=== PATIENT | female | born 1960 | race Caucasian/White ===

== ENCOUNTER 2016-10-07 22:40 | Emergency (ER) | payer OTHER ==
[~2016-10-07] VITALS: Ht 170.2 cm; Wt 86.0 kg
[~2016-10-07 22:40] MED LIST: CALC-858 PO; CITA20TA11 PO; Docusate Sodium PO; Ibuprofen PO; LEVO88TA28 PO; Oxycodone/Acetaminophen PO
[2016-10-07 22:42] VITALS: BP 124/88; PULSE 121; RESP 18; O2SAT 97
[2016-10-07] MEDS ORDERED: predniSONE 20 mg Tablet PO ONE (22:50)
--- NOTE | 2016-10-07 23:23 | ED.REPORT ---
HPI-Rash / Abscess Date of Service Oct 07, 2016 ED Provider: Maribeth Zapata MD Patient is a 56 year old female who presents to the ED due to a rash onset earlier this afternoon. Associated symptoms include body aches and a cough that started yesterday. The patient reports that the rash has continued to spread and is extremely itchy. She denies nausea, vomiting, shortness of breath or voice changes. The patient states that she tried taking Benadryl with no relief. Nursing Notes Stated Complaint: HIVES Chief Complaint: Skin Rash/Abscess Nursing Notes Reviewed: Yes Allergies: Coded Allergies: No Known Allergies (Unverified , 11/12/13) Scheduled Calcium Carb & Cit/Vitamin D3 (Calcium + D3 ER Tablet) 1 Each Tablet.er 1 EACH PO DAILY Citalopram (Citalopram) 20 Mg Tablet 20 MG PO DAILY Famotidine (Pepcid) 20 Mg Tablet 20 MG PO BID Levothyroxine (Levoxyl) 88 Mcg Tablet 88 MCG PO DAILY Prednisone (PredniSONE) 20 Mg Tablet 40 MG PO DAILY Scheduled PRN ([Docusate Sodium]) 100 MG CAPSULE 100 MG PO BID PRN PRN For Constipation ([Oxycodone/Acetaminophen]) 1 TAB TABLET 1-2 TAB PO Q4H PRN PRN For Pain ([Ibuprofen]) 600 MG TABLET 800 MG PO Q6H PRN PRN For Pain Hydroxyzine Pamoate (HydrOXYzine Pamoate) 25 Mg Capsule 25 MG PO Q6 PRN PRN For Itching General Time Seen by MD: 23:23 Chief Complaint Rash Hx Obtained From: Patient Arrived By: Walk-in Onset Occurred: 5 - 8 hours ago Symptom Duration: Since onset Location: : Generalized Quality: Itching Pertinent Negative: Relieved by nothing Recent Healthcare: No recent doctor visit, No recent hospitalization Similar Sx Previous: No Past Medical History Past Medical History none reported Smoking History Unknown if Ever Smoker Ambulatory Status Independent Review of Systems Review of Systems Note: body aches Constitutional: Denies: Chills, Fever Ears / Nose / Throat: Denies: Sore throat, Voice change Respiratory: Reports: Non-productive cough, Denies: Shortness of breath GI: Denies: Nausea, Vomiting Skin: Reports Rash Allergy / Immune: Reports: Hives, Itching Complete sys rev & neg: except as marked. Physical Exam Initial Vital Signs Vital Signs (First) Date Time Temp Pulse Resp B/P Pulse Ox O2 Delivery O2 Flow Rate FiO2 10/07/16 22:42 36.7 121 18 124/88 97 Room Air Initial VS: Reviewed, Vital signs abnormal General/Constitutional: Awake, Alert, No acute distress Skin: Warm, Dry diffuse urticaria on her arms, back and groin area with some areas that had vesicles Head / Eyes: Atraumatic, Normocephalic, PERRL, EOMI ENT: Atraumatic, Airway patent, Mucous membranes moist Respiratory / Chest: Atraumatic, Breath sounds NL, Breath sounds = bilat, No respiratory distress Cardiovascular: Heart rate NL, Regular rhythm, Heart sounds NL Neurologic: Oriented X3, Speech NL, No motor deficits, No sensory deficits Psychiatric: Affect NL, Mood NL Re-Eval/Medical Decision Med Decision/Clinical Course The patient's rash appears urticarial however she has some areas with vesicles. Given her description of general malaise she likely has a viral exanthem. There is no oral involvement and no recent ingestion of any medications or over- the-counter substances. Re-Evaluation/Progress : Time of Eval: 23:45 Re-Evaluation/Progress Note: Discussed plan for discharge. Patient understands and agrees to plan. All questions were addressed. Counseled Regarding: Diagnosis, Need for follow-up, When/why to return to ED Discharge & Departure Impression: Primary Impression: Viral exanthem, unspecified Disposition: Home Discharge Condition All VS Reviewed: Yes Condition: Stable Patient Instructions: Viral Exanthem (ED) Additional Instructions: Take Prednisone daily. You can also continue to take Benadryl or Vistaril but do not take both of them Make a follow up appointment for next week with your primary care physician if the rash persists. Return to the emergency department if you develop any significant blistering or oral involvement. Referrals: CORA JAY (PCP) Mally Attestation Portions of this note were transcribed by Umm Post. I, Dr. Zapata personally performed the history, physical exam and medical decision-making; I reviewed and confirmed the accuracy of the information in the transcribed note. Signed by: Mally Elaine, 10/07/16 and 0705 copies to: CORA JAY Jena M MD Oct 07, 2016 23:23 Kim Post Oct 07, 2016 23:45
[2016-10-07] MEDS ORDERED: hydrOXYzine Pamoate 25 mg Capsule PO ONE (23:55)
[2016-10-07] MEDS ORDERED: HYDR-3797 PO (23:56)
[2016-10-07] MEDS ORDERED: FAMO20T PO (23:56)
[2016-10-07] MEDS ORDERED: PRE20 PO (23:56)
[2016-10-08 00:08] VITALS: BP 122/78; PULSE 98; RESP 18; O2SAT 98
== END 2016-10-08 00:08 | disposition home or self-care (01) ==
LOC: SED 22:40
DX: B09 Unspecified viral infection characterized by skin and mucous membrane lesions (principal)
CPT/HCPCS: 99283; Q0177